=== PATIENT | female | born 1985 | race Caucasian/White ===

== ENCOUNTER → 2025-03-16 | Outpatient (CLI) | payer BC ==
--- NOTE | 2025-03-16 11:59 | XR ---
EXAMINATION TYPE: XR lumbosacral spine min 4V DATE OF EXAM: 03/16/2025 11:52 AM COMPARISON: None CLINICAL INDICATION: Female, 39 years old with history of [id number] LT HIP PAIN,LBP; [facility], pain TECHNIQUE: XR lumbosacral spine min 4V - Frontal, lateral , bilateral oblique and coned in L5-S1 late ral views of the spine. FINDINGS: No evidence of any acute osseous pathology. No evidence of loss of vertebral body height i s seen. There is normal alignment of the lumbar vertebral bodies. No significant degeneration changes throughout the spine. IMPRESSION: 1. No acute fracture. 2. No significant multilevel disc degeneration. [facility], , 03/16/2025 11:57 AM
--- NOTE | 2025-03-16 11:59 | XR ---
EXAMINATION TYPE: XR Hip Complete LT DATE OF EXAM: 03/16/2025 11:52 AM COMPARISON: None CLINICAL INDICATION: Female, 39 years old with history of [id number] LT HIP PAIN,LBP; [facility], pain TECHNIQUE: XR Hip Complete LT; Frontal and lateral views FINDINGS: No evidence for acute process, joint dislocation or significant soft tissue swelling. Osteo phyte formation of the superior acetabulum of the hip. There is mild joint space narrowing. IMPRESSION: 1. No evidence for acute process. 2. Mild hip osteoarthrosis. [facility], , 03/16/2025 11:57 AM
== END | disposition home or self-care (01) ==
LOC: RADXRYALE 11:21
PROVIDERS: ATTEND Internal Medicine
DX: M16.12 Unilateral primary osteoarthritis, left hip (principal); M54.32 Sciatica, left side
CPT/HCPCS: 72110; 73502